=== PATIENT | male | born 1955 | race Caucasian/White ===

== ENCOUNTER 2017-06-01 09:35 | Day surgery (SDC) | payer OTHER ==
[~2017-06-01] VITALS: Ht 177.8 cm; Wt 90.8 kg
[2017-06-01] MEDS ORDERED: IOHEXOL 350 MG/ML 100 ML BTL (for Cath Lab) OTHER ONE (09:36)
[2017-06-01 10:25] VITALS: BP 157/90; PULSE 88; RESP 18; TEMP 97.8; O2SAT 100
[2017-06-01] MEDS ORDERED: BYST10TA2 PO (10:27)
[2017-06-01] MEDS ORDERED: ALBUAER3 INH (10:27)
[2017-06-01] MEDS ORDERED: HYDR25TA5 PO (10:27)
[2017-06-01] MEDS ORDERED: SYMB160A INH (10:27)
[2017-06-01] MEDS ORDERED: CILO50TA PO (10:27)
[2017-06-01] MEDS ORDERED: SODIUM CHLORIDE 0.9% FLUSH 10 ML FLUSH IV FLUSH PRN (10:45)
[2017-06-01] MEDS ORDERED: SODIUM CHLOR 0.9% 1000 ML INJ 1,000 ML IV SCH ×2 (10:45→12:33)
[2017-06-01 10:50] LABS: BASOPHIL # 0.1 TH/MM3 (0-0.2); BASOPHIL % 1.1 % (0.0-2.0); EOSINOPHIL # 0.5 TH/MM3 (0-0.4); EOSINOPHIL % 6.2 % (0.0-4.0); HEMATOCRIT 49.2 % (39.0-51.0); HEMOGLOBIN 17.7 GM/DL (13.0-17.0); MEAN CORPUSCULAR HEMOGLOBIN 35.6 PG (27.0-34.0); MEAN PLATELET VOLUME 6.1 FL (7.0-11.0); MONO % 13.7 % (0.0-8.0); PLATELET COUNT 300 TH/MM3 (150-450); RED BLOOD COUNT 4.96 MIL/MM3 (4.50-5.90); RED CELL DISTRIBUTION WIDTH 14.6 % (11.6-17.2); WHITE BLOOD COUNT 7.5 TH/MM3 (4.0-11.0)
[2017-06-01 10:56] LABS: INTERNATIONAL NORMALIZED RATIO 1.1 RATIO; PROTHROMBIN TIME - PATIENT 10.7 SEC (9.8-11.6)
[2017-06-01 11:00] LABS: BICARBONATE 30.1 MEQ/L (21.0-32.0); CALCIUM 9.1 MG/DL (8.5-10.1); CREATININE 1.43 MG/DL (0.60-1.30)
[2017-06-01] MEDS ORDERED: HEPARIN-NS/PF FLUSH BAG 2,000 ML IV FLUSH ONE (11:13)
[2017-06-01] MEDS ORDERED: MIDAZOLAM HCL 2 MG/2 ML VIAL ONE (11:15)
--- NOTE | 2017-06-01 12:34 | CATHPROC ---
[employer] HIS Report Study Information Study Number Admission Scheduled Start Study Start [id number] Jun 01 2017 9:35AM 06/01/2017 Jun 01 2017 10:39AM [place] Service Cath Endovascular Study Admit Source Facility Department Other [facility] - [facility] Director Physician and Clinical Staff Initial John Paul Huffman Web Site DesignerKarina Vernon RN Web Site DesignerPaul Thornton RN Other Jennifer Shepard BSN Recorder Peri Burks,[place] TECH2 Scrub Raj Neal,RT(R) Procedures Performed Procedure Location (Site) Vessel Name Wire insertion Fem Art (right) Femoral Art Equipment Time Receptionist Airline Lounge Description Size Mfg Part Number Used/Scraped [id number] 10:41 ANGIO-DYNAMICS OMNI FLUSH 65CM CATHETER FR 5 Used *[id number] 11:38 ANGIO-DYNAMICS OMNI FLUSH 65CM CATHETER FR 5 Used *[id number] 11:32 ARGON/MAXXIM DRAPE, BRACHIAL REINFORCED * Used *[id number] INTRODUCER SET, 10:41 [employer] FR 5 [id number] *[id number] Used MICROPUNCTURE, STIFFENED [id number] 10:41 i[employer]ica PACK, CCL CUSTOM * Used *[id number] 11:31 [employer] MEDICAL WIRE, 3MMJ .035 180CM 180CM Used *[id number] 11:56 NAMIC TUBING, HIGH PRESSURE 48" 48" Used *[id number] 10:41 NYCOMED OMNIPAQUE, 300 MG, 150ML 150ML [id number] Used 10:41 NYCOMED OMNIPAQUE, 300 MG, 150ML 150ML [id number] Used [id number] 10:41 TERUMO MEDICAL SHEATH, FR5 TERUMO (10CM) FR 5 Used *[id number] WIRE, ANGLE GLIDE STIFF .035 [id number] 11:52 TERUMO MEDICAL/ARLENE 260CM Used 260CM *[id number] History: Current Medications Medication Dosage/Unit Route Frequency Last Date/Time Taken HCTZ Albuterol Beta Emmett History: Allergies Allergy Reaction amoxicillin History: Risk Factors Hypertension Dyslipidemia Yes Yes Peripheral Artery Disease History: Other Current Smoker Method Packs a Day Yes Cigarettes 1 Labs Hgb (g/dl) Hct (%) RBC (MIL/MM3) WBC (l/cumm) Platelets (thousands) 11.60-17.00 35.00-51.00 4.00-5.90 4.00-11.00 150.00-450.00 17.7 49.2 4.9 7.5 300 Glucose (mg/dl) BUN (mg/dl) Creatinine (mg/dl) BUN:Creatinine (1:x) 74.00-106.00 7.00-18.00 0.50-1.30 10.00-20.00 126 7 1.4 5 Na (meq/l) K (meq/l) 136.00-145.00 3.50-5.10 129 3.4 INR (PTT:PT) 0.90-1.10 1.1 CPK-MB (ng/ML) 0.50-3.60 Not Drawn Medication Medication Total Dose (Bolus/Oral) Medication Total Dosage/Unit 1% XYLOCAINE 20 mL FENTANYL 50 mcg VERSED 1 mg Medications (Bolus/Oral) Medication Time Given Dosage/Unit Administered By Reason 1% XYLOCAINE 06/01/2017 11:51:20 AM 20 mL John Paul Poe 20 mL 1% XYLOCAINE given in lab by John Paul Poe in Right Groin via Subcutaneous. VERSED 06/01/2017 11:51:36 AM 1 mg Paul Zamora 1 mg VERSED given in lab by Paul Zamora RN via Peripheral IV. Ordered by John Paul Poe FENTANYL 06/01/2017 11:51:44 AM 50 mcg Paul Zamora 50 mcg FENTANYL given in lab by Paul Zamora RN via Peripheral IV. Ordered by John Paul Poe Medication (Drip) Medication Time Given Dosage/Unit Concentration/Unit Diluent (ml) Solution IV Solutions 06/01/2017 11:07:49 AM 0 mL (IV) 500 NaCl .9 Patient arrived on IV Solutions via Peripheral IV. Pump/Drip Flow = 20 ml/hr using NaCl .9. Initial Case Assessment Cardiovascular HR Rhythm NIBP Chest Pain 94 sr 162/74 0 Circulatory - Right Pulses Dorsalis Pedis Posterior Tibial Femoral 1 1 1 Scale (0,1,2,3,4,d) Circulatory - Left Pulses Dorsalis Pedis Posterior Tibial Femoral 1 1 1 Scale (0,1,2,3,4,d) Neurological State Oriented to time-place- Alert Moves all extremities person Respiration - General Respiration Rate SpO2 (%) (B/min) 10 100 Chronological Log Time Study Chronological Log 11:04:40 Patient arrived via Bed. 11:04:41 Patient Name, D.O.B, / Armband Verified By R.N. 11:04:42 Consent signed by the physician and the patient and verified by the Youth [facility] Director staff. 11:04:43 Pre-op and post- op instructions given; patient acknowledges understanding of instructions. 11:04:44 Verbal Stimulation=2 Physical Stimulation=2 Airway=2 Respiration=2 TOTAL=8. (0=absent, 1=li mited, 2=present) 11:07:04 Presedation assessment performed by Youth [facility] Director RN. 11:07:06 Patient has been NPO for More than 6Hrs. 11:07:07 Skin Breakdown-scratch on right forearm and rash on left foot noted. 11:07:47 Sandro Prominences Protected 11:07:48 A # 20 IV was noted in the Antecubital (left). Grade = patent 11:07:49 Patient arrived on IV Solutions via Peripheral IV. Pump/Drip Flow = 20 ml/hr using NaCl .9. 11:08:14 History and physical on the chart or being dictated. Vitals capture started with the following parameters, Patient=Adult, Interval=5 min, Initial Pr wydsmr=640 mmHg, 11:11:58 Deflation Rate=5 mmHg, Cuff placed on Right Ankle 11:12:26 Patient Name, D.O.B, / Armband Verified By R.N. 11:12:46 HR=98 bpm, OFKI=193/74 mmhg, SpO2=98.0 %, Resp=13 B/min Assessment: Initial Case, HR=94 BPM, Rhythm=sr, DAXM=966/74 mmhg, Chest Pain=0 Right Pulses: Álvaro Ped=1, Post Tib=1, Femoral=1 11:13:30 Left Pulses: Álvaro Ped=1, Post Tib=1, Femoral=1 Neurological: State=Alert, Ox3, DAILEY Respiration: Resp=10 B/min, NdK3=972 % 11:15:12 Reference ECG taken 11:17:41 HR=93 bpm, FKBP=658/92 mmhg, WgB4=888.0 %, Resp=9 B/min 11:22:36 HR=89 bpm, ORVZ=093/83 mmhg, SpO2=99.0 %, Resp=8 B/min 11:24:58 Bilateral groins and left foot prepped with 2% chlorhexidine, and draped after a 3 minute w aiting time. 11:27:37 HR=90 bpm, HUUI=594/94 mmhg, SpO2=98.0 %, Resp=14 B/min, Sheikh=2 11:32:42 HR=89 bpm, DCBR=725/85 mmhg, SpO2=99.0 %, Resp=13 B/min, Sheikh=2 11:35:46 Pressure channel 1 zeroed. 11:36:24 MD paged 11:37:39 HR=86 bpm, YGIV=290/73 mmhg, SpO2=99.0 %, Resp=5 B/min, Sheikh=2 11:41:01 MD arrived. 11:42:38 HR=93 bpm, ROLK=551/78 mmhg, SpO2=99.0 %, Resp=14 B/min, Sheikh=2 11:47:35 HR=86 bpm, PNJG=003/73 mmhg, AzE0=280.0 %, Resp=4 B/min, Sheikh=2 Time Out. Correct patient, correct procedure, correct physician, power injector loaded, or not loaded with contrast with 11:50:59 surgical team present. Time Out Concurred by MD and individual staff in procedure. 11:51:18 Case Start 11:51:20 20 mL 1% XYLOCAINE given in lab by John Paul Poe in Right Groin via Subcutaneous. 11:51:36 1 mg VERSED given in lab by Paul Zamora, SUMMER via Peripheral IV. Ordered by Andrew Poe 11:51:44 50 mcg FENTANYL given in lab by Paul Zamora, SUMMER via Peripheral IV. Ordered by John Paul Poe 11:52:38 HR=89 bpm, JLMB=059/77 mmhg, SpO2=99.0 %, Resp=13 B/min, Sheikh=2 11:54:06 Access site was Right Femoral Artery. A INTRODUCER SET, MICROPUNCTURE, STIFFENED FR 5 was advanced into the Fem Art (right) using the Modified 11:54:16 Seldinger technique. A SHEATH, FR5 TERUMO (10CM) FR 5 was exchanged in the Fem Art (right). This was necessary in or christopher to achieve 11:55:02 vascular hemostasis. 11:57:35 HR=89 bpm, GTVP=725/64 mmhg, SpO2=91.0 %, Resp=17 B/min, Sheikh=2 Recorded Pressure: FA, HR=89, Condition=Condition 1 11:58:10 (Femoral Artery) FA 138/74/98 12:00:43 Through a sheath, The Right lower extremity Run-off was performed using multiple images wi th 5 cc's per image 12:02:52 A WIRE, ANGLE GLIDE STIFF .035 260CM 260CM was inserted via Fem Art (right). A OMNI FLUSH 65CM CATHETER FR 5 was advanced over a wire. OMNIPAQUE, 300 MG, 150ML 150ML was u sed for 12:03:01 injections. 12:03:09 HR=89 bpm, PGOT=884/76 mmhg, SpO2=92.0 %, Resp=19 B/min, Sheikh=2 12:03:27 Wire removed 12:07:33 Through a catheter, The Left lower extremity Femoral Run-off was performed with multiple , 5 cc's contrast per image 12:07:37 HR=88 bpm, AKRN=597/82 mmhg, SpO2=94.0 %, Resp=17 B/min, Sheikh=2 12:12:41 HR=91 bpm, HUBR=499/81 mmhg, SpO2=96.0 %, Resp=19 B/min, Sheikh=2 12:12:59 Catheter was removed over wire 12:15:19 Case End 12:16:41 DOCU called. Spoke to Brie 12:17:44 HR=88 bpm, NUBU=724/72 mmhg, SpO2=97.0 %, Resp=11 B/min, Sheikh=2 12:19:18 Sheath removed; pressure applied to access site. 12:22:39 HR=91 bpm, ZSMP=841/79 mmhg, SpO2=97.0 %, Resp=11 B/min, Sheikh=2 12:27:40 HR=89 bpm, PKWQ=892/77 mmhg, SpO2=95.0 %, Resp=15 B/min, Sheikh=2 12:29:56 Sterile dressing applied to site 12:30:00 No case complications noted. 12:30:08 Bedside Report will be given. 12:32:39 HR=91 bpm, HVJR=148/73 mmhg, SpO2=94.0 %, Resp=17 B/min, Sheikh=2 12:33:34 Vitals capture stopped. 12:33:40 Patient moved to stretcher End Study - Contrast Media Used In Study Contrast Total Opened (mL) Total Used (mL) Total Wasted (mL) Omnipaque 90 90 0 End Study - Maximum Contrast Load Max Contrast Load (mL) 324.4 End Study - Radiation Exposure Fluoro Time (minutes) 4.3 End Study - Patient Disposition Complications Transferred To Interventional Outcome No [facility] Director Holding No attempt made
[2017-06-01] MEDS ORDERED: ASPI-516 CHEW (12:35)
[2017-06-01] MEDS ORDERED: SODIUM CHLOR 0.9% 250 ML INJ 250 ML IV PRN (12:45)
[2017-06-01] MEDS ORDERED: oxyCODONE/ACETAMINOPHEN 5 MG/325 MG TAB PO PRN ×2 (12:45)
[2017-06-01] MEDS ORDERED: MISC INFORMATION XX ONE (12:45)
[2017-06-01] MEDS ORDERED: ONDANSETRON HCL 4 MG/2 ML VIAL IV PUSH PRN (12:45)
[2017-06-01] MEDS ORDERED: ATROPINE SULFATE 1 MG/ML VIAL IV PUSH PRN (12:45)
--- NOTE | 2017-06-01 22:56 | EKG ---
Date Performed: 06/01/2017 Time Performed: 10:39:58 PTAGE: 62 years EKG: Sinus rhythm . Possible inferior infarct - age undetermined Low QRS voltages in limb leads Abnormal ECG NO PREVIOUS TRACING DOCTOR: Ulices Barbosa Interpretating Date/Time 06/01/2017 22:55:03
--- NOTE | 2017-06-07 08:45 | MA ---
cc: John Paul Poe DO 06/01/2017 DATE OF PROCEDURE: 06/01/2017. PROCEDURE: Bilateral lower extremity peripheral angiogram, moderate sedation 25 minutes. PREPROCEDURE DIAGNOSIS: Life limiting claudication, left greater than right. POSTPROCEDURE DIAGNOSIS: Moderate peripheral artery disease of the right, severe peripheral artery disease of the left with SFA occlusion. MEDICATIONS: Versed 1 mg, fentanyl 50 mcg. CONTRAST USED: 90 mL FLUOROSCOPY: 4.3 minutes. SEDATION: Moderate sedation 25 minutes. ESTIMATED BLOOD LOSS: 10 mL PROCEDURAL SUMMARY: Jennifer Schmidt is a pleasant 62-year-old male, whom I see in the office and presented with claudication with significant pain in the left extremity, greater than the right with walking. He felt that this limited his lifestyle and underwent a CTA which showed possible occlusion of the left SFA. He was recommended peripheral angiogram and underwent the procedure on 06/01/2017. Risks, benefits and alternatives were explained to him and he consented as such. He was brought to the lab and prepped in the usual sterile fashion. The right femoral artery was accessed using modified Seldinger technique and placement of a 5-Pakistani sheath. This was easily aspirated and flushed. Right lower extremity peripheral angiogram was done through the 5-Pakistani sheath. A Glidewire with an Omniflush was used to cross over to the left femoral artery for angiogram of the left lower extremity. This was removed over the wire. The femoral sheath was removed with pressure held for hemostasis. 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 FINDINGS: Right lower extremity, right PAINTINGS CONSERVATOR with 50% disease at the insertion site. Distally, the SFA has a 50-60% stenosis in the mid to distal portion. Popliteal artery is patent. Distally, the popliteal trifurcates with moderate disease in the tibioperoneal trunk. Distally, there appears to be 3-vessel runoff to the foot. Left lower extremity, left iliac is patent. The SFA is 100% occluded at the ostial portion. There is a 60% lesion in the profunda. Distally, the SFA reconstitutes before the popliteal artery. Popliteal artery trifurcates distally with 2-vessel runoff to the foot. IMPRESSION: 1. Life limiting claudication, left greater than right. 2. Moderate right lower extremity peripheral artery disease. 3. Severe left lower extremity peripheral artery disease with SFA occlusion. RECOMMENDATIONS: 1. Mr. Schmidt appears to have significant disease of his left lower extremity with occlusion at the ostium of the SFA and collaterals through his profunda. Due to the proximity to the bifurcation of the profunda and SFA I felt that this would be difficult to stent. 2. I will recommend that he see Dr. Dejesus for possible endovascular versus surgical intervention as anything that happened at the bifurcation could cause overall limb ischemia without an ability to do surgery immediately. Thank you for allowing me to see Jennifer Schmidt. If there are any questions please do not hesitate to call. John Paul Poe DO VGP/TL , 12:52 AM , 08:42 AM
== END 2017-06-01 17:44 | disposition home or self-care (01) ==
LOC: HDIC 09:35 → EDSEX 09:35 → HDOC 09:35
PROVIDERS: ATTEND Nuclear Medicine Nuclear Cardiology
DX: I73.9 Peripheral vascular disease, unspecified (principal); I77.1 Stricture of artery; R94.31 Abnormal electrocardiogram [ECG] [EKG]; I11.9 Hypertensive heart disease without heart failure; F17.210 Nicotine dependence, cigarettes, uncomplicated
CPT/HCPCS: 36246; 75716; 80048; 85025; 85610; 93005; 99152; 99153; C1769; C1893; J1644; J2250; J3010; Q9967

== ENCOUNTER 2017-06-22 07:51 | Day surgery (SDC) | payer OTHER ==
[~2017-06-22] VITALS: Ht 176.5 cm; Wt 89.6 kg
[~2017-06-22 07:51] MED LIST: ALBUAER3 INH; ASPI-516 CHEW; BYST10TA2 PO; CILO50TA PO; HYDR25TA5 PO; SYMB160A INH
[2017-06-22] MEDS ORDERED: IOHEXOL 350 MG/ML 100 ML BTL (for Cath Lab) OTHER ONE (07:52)
[2017-06-22 08:44] VITALS: BP 149/84; PULSE 88; RESP 18; TEMP 98.1; O2SAT 96
[2017-06-22] MEDS ORDERED: SODIUM CHLORIDE 0.9% FLUSH 10 ML FLUSH IV FLUSH PRN (08:45)
[2017-06-22] MEDS ORDERED: SODIUM BICARBONATE 100 MEQ in D5W 1000 ML IV SCH (08:45)
[2017-06-22 09:05] LABS: AUTOMATED NEUTROPHIL # 4.6 TH/MM3 (1.8-7.7); BASOPHIL # 0.1 TH/MM3 (0-0.2); BASOPHIL % 1.2 % (0.0-2.0); EOSINOPHIL # 0.5 TH/MM3 (0-0.4); EOSINOPHIL % 7.3 % (0.0-4.0); HEMATOCRIT 49.2 % (39.0-51.0); HEMOGLOBIN 17.5 GM/DL (13.0-17.0); LYMPH % 12.8 % (9.0-44.0); LYMPHOCYTE # 0.9 TH/MM3 (1.0-4.8); MEAN CELL VOLUME 98.9 FL (80.0-100.0); MEAN CORPUSCULAR HEMOGLOBIN 35.2 PG (27.0-34.0); MEAN CORPUSCULAR HGB CONC 35.5 % (32.0-36.0); MEAN PLATELET VOLUME 6.7 FL (7.0-11.0); NEUT % 64.7 % (16.0-70.0); PLATELET COUNT 352 TH/MM3 (150-450); RED BLOOD COUNT 4.97 MIL/MM3 (4.50-5.90)
[2017-06-22 09:22] LABS: BICARBONATE 26.8 MEQ/L (21.0-32.0); CREATININE 1.43 MG/DL (0.60-1.30)
--- NOTE | 2017-06-22 10:00 | PD.VS.PN ---
Pre-operative Note Pre-operative diagnosis: LLE claudication Planned procedure: L LE angiogram/endovascular intervention Interval History: Pt has no new changes in his health that would preclude OR Labs: Laboratory Results Test 06/22/17 08:28 Anion Gap 9 MEQ/L (5-15) Blood Urea Nitrogen 9 MG/DL (7-18) Creatinine 1.43 MG/DL (0.60-1.30) Random Glucose 109 MG/DL (74-106) Calcium Level 9.0 MG/DL (8.5-10.1) Sodium Level 129 MEQ/L (136-145) Potassium Level 3.3 MEQ/L (3.5-5.1) Chloride Level 93 MEQ/L (98-107) Carbon Dioxide Level 26.8 MEQ/L (21.0-32.0) Hematocrit 49.2 % (39.0-51.0) Hemoglobin 17.5 GM/DL (13.0-17.0) Mean Corpuscular Hemoglobin 35.2 PG (27.0-34.0) Mean Corpuscular Hemoglobin Concent 35.5 % (32.0-36.0) Mean Corpuscular Volume 98.9 FL (80.0-100.0) Mean Platelet Volume 6.7 FL (7.0-11.0) Platelet Count 352 TH/MM3 (150-450) Red Blood Count 4.97 MIL/MM3 (4.50-5.90) Red Cell Distribution Width 14.0 % (11.6-17.2) White Blood Count 7.0 TH/MM3 (4.0-11.0) Blood: none needed Imaging: will make in OR Orders: NPO clindamycin if stent being placed Post-operative destination: DOCU Operative site marked: Yes Consent: Informed consent has been obtained from Jennifer Schmdit. I have explained the procedure in detail and discussed the risks, benefits, and potential complications. All questions have been answered. Patient contact information: in waiting room Bird Dejesus MD Jun 22, 2017 10:00
[2017-06-22] MEDS ORDERED: HEPARIN-NS/PF FLUSH BAG 1,000 ML IV FLUSH ONE (10:10)
[2017-06-22] MEDS ORDERED: MIDAZOLAM HCL 5 MG/5 ML VIAL ONE (10:11)
[2017-06-22] MEDS ORDERED: HEPARIN SODIUM - IV 10,000 UNITS/10 ML VIAL ONE (10:21)
[2017-06-22] MEDS ORDERED: LEVOFLOXACIN 500 MG PREMIX INJ 100 ML IV ONE (10:42)
--- NOTE | 2017-06-22 10:59 | CATHPROC ---
Patient Name: HAJA URENA Study #: [id number] Initial MD: Bird Dejesus Date of : 1955 Study Date: 06/22/2017 Cardiac Catheterization Report 06/22/2017 10:58:54 AM Financial #: [id number] 1 of 10 Patient Name: HAJA URENA Study #: [id number] Initial MD: Bird Dejesus Date of : 1955 Study Date: 06/22/2017 Entire Case Report Patient Information Patient Name HAJA URENA Date of 1955 Age 62 years Financial # [id number] Gender M AlternateID Lab Number 5 Room Number DC04 Height (in) Height (cm) BSA Weight (lbs) 197.1 Weight (kg) 89.6 Patient Address/Phone Number Home Address [facility] Home Phone Number [phone] [facility] [phone] Study Information Study Number Admission Scheduled Start Study Start [id number] Jun 22 2017 7:51AM 06/22/2017 Jun 22 2017 10:02AM Morris Service Cath Endovascular Study Admit Source Facility Department Other [facility] - Service Loss Control Consultant Physician and Clinical Staff Initial Bird Gutierrez District Court Judge Paul Zamora,SUMMER Other Carlee Hennessy,RT(R) TECH2 Recorder Peri Burks RCIS TECH2 Scrub Raj Neal,RT(R) Procedures Performed Procedure Location (Site) Vessel Name Angiogram (manual) Fem Sup. (left) Femoral Art Periph stent Fem Sup. (left) Femoral Art APPLICATIONS SALES CONSULTANT Fem Sup. (left) Femoral Art Wire insertion Fem Art (right) Femoral Art 06/22/2017 10:58:54 AM Financial #: [id number] 2 of 10 Patient Name: HAJA URENA Study #: [id number] Initial MD: Bird Dejesus Date of : 1955 Study Date: 06/22/2017 Equipment Time Greenhouse Specialist Description Size Mfg Part Number Used/Scraped [id number] 10:05 ANGIO-DYNAMICS OMNI FLUSH 65CM CATHETER FR 4 Used *[id number] INTRODUCER SET, 10:05 [employer]. FR 5 [id number] *[id number] Used MICROPUNCTURE STIFF CXI-4.0-35-135- 10:25 COOK/ARLENE CATHETER, FR4 CXI SUPPORT FR 4 Used P-NS-0 *[id number] SHEATH, FR6 JANE 1 FLEXOR [id number] 10:24 COOK/ARLENE FR 6 Used 55CM *[id number] WIRE, GUIDE APPROACH PLANNING MANAGEMENT IT SPECIALIST [id number] 10:25 COOK/ARLENE 300CM Used MICROWIRE *[id number] 10:54 DAIG/ST. SHANITA MEDICAL ANGIOSEAL, FR6 VIP FR 6 Used *[id number] ENDOVASCULAR TII95-89-487- 10:49 STENT, EVERFLEX 6 X 150 120CM 6 X 150 Used [employer] 120 ENDOVASCULAR CXF89-24-277- 10:43 STENT, EVERFLEX 6 X 200 120CM 6 X 200 Used [employer] 120 BALLOON, ADMIRAL EXTREME 5 X [id number] 10:31 [employer]ATEC [employer] 130CM Used 150 130CM *[id number] 10:05 ActualSun PACK, CCL CUSTOM * Used *[id number] 10:05 CohBar MEDICAL PRESSURE TUBING 48" 48" [id number] Used 6609-33 10:24 CohBar MEDICAL WIRE, WANG 260CM .035 260CM Used *[id number] 10:05 NAMIC TUBING, HIGH PRESSURE 20" 20" Used *[id number] TUBING, PRESSURE INJECTION [id number] 10:05 NAMIC PACER 72" Used 72" *[id number] 10:05 NYCOMED OMNIPAQUE, 300 MG, 150ML 150ML [id number] Used 10:05 NYCOMED OMNIPAQUE, 300 MG, 50ML 50ML [id number] Used [id number] 10:05 BRANCH MEDICAL BLANKET,WARM AIR CCL * Used *1628491 RCX138 10:05 TERUMO MEDICAL SHEATH, FR4 TERUMO (10CM) FR 4 Used *[id number] WIRE, ANGLED GLIDE .035 [id number] 10:05 TERUMO MEDICAL/ARLENE 260CM Used 260CM *[id number] Equipment Model, Serial, Lot Number and Expiration Data Description Model Number Serial Number Lot Number Expiration Date CATHETER, FR4 CXI SUPPORT [id number] 02-04-2020 SHEATH, FR6 JANE 1 FLEXOR [id number] 12-28-2019 55CM STENT, EVERFLEX 6 X 150 120CM [id number] 01-18-2020 STENT, EVERFLEX 6 X 200 120CM [id number] 04-28-2020 WIRE, GUIDE APPROACH PLANNING MANAGEMENT IT SPECIALIST [id number] 09-05-2021 MICROWIRE 06/22/2017 10:58:54 AM Financial #: [id number] 3 of 10 Patient Name: HAJA URENA Study #: [id number] Initial MD: Bird Dejesus Date of : 1955 Study Date: 06/22/2017 Insurance Information Insurance Payor Private Health Insurance Third Constitution Party Third Constitution Party Number CIGNA POS CIGPOS History: Allergies Allergy Reaction amoxicillin History: Risk Factors Hypertension Dyslipidemia Yes Yes Peripheral Artery Disease History: Symptoms/Diagnosis Selection Items SOB History: Other Current Smoker Method Packs a Day Yes Cigarettes 1 Labs Hgb (g/dl) Hct (%) RBC (MIL/MM3) WBC (l/cumm) Platelets (thousands) 11.60-17.00 35.00-51.00 4.00-5.90 4.00-11.00 150.00-450.00 17.5 49.2 4.9 7 352 Glucose (mg/dl) BUN (mg/dl) Creatinine (mg/dl) BUN:Creatinine (1:x) 74.00-106.00 7.00-18.00 0.50-1.30 10.00-20.00 109 9 1.4 6.4 Na (meq/l) K (meq/l) Cl (meq/l) CO2 (mmol/L) Ca (mg/dl) 136.00-145.00 3.50-5.10 98.00-107.00 21.00-32.00 8.50-10.10 129 3.3 93 26.8 9 CPK-MB (ng/ML) 0.50-3.60 Not Drawn Medication 06/22/2017 10:58:54 AM Financial #: [id number] of 10 Patient Name: HAJA URENA Study #: [id number] Initial MD: Bird Dejesus Date of : 1955 Study Date: 2017 Medication Total Dose (Bolus/Oral) Medication Total Dosage/Unit 1% XYLOCAINE 20 mL FENTANYL 100 mcg HEPARIN 5000 units VERSED 3 mg Medications (Bolus/Oral) Medication Time Given Dosage/Unit Administered By Reason VERSED 06/22/2017 10:16:40 AM 2 mg Paul Zamora 2 mg VERSED given in lab by Paul Zamora RN in Left Antecubital via Peripheral IV. Ordered by Bird Abdul. FENTANYL 06/22/2017 10:16:53 AM 50 mcg BenoMelaniey 50 mcg FENTANYL given in lab by Paul Zamora RN in Left Antecubital via Peripheral IV. Ordered by Bird Dejesus. 1% XYLOCAINE 06/22/2017 10:17:38 AM 20 mL Patient arrived on 20 mL 1% XYLOCAINE via Subcutaneous. VERSED 06/22/2017 10:18:16 AM 1 mg Paul Zamora 1 mg VERSED given in lab by Paul Zamora RN in Left Antecubital via Peripheral IV. Ordered by Bird Abdul. FENTANYL 06/22/2017 10:18:59 AM 25 mcg BenoPaul 25 mcg FENTANYL given in lab by Paul Zamora RN in Left Antecubital via Peripheral IV. Ordered by Bird Dejesus. HEPARIN 06/22/2017 10:23:36 AM 5000 units Paul Zamora 5000 units HEPARIN given in lab by Paul Zamora RN in Left Antecubital via Peripheral IV. Ordered by Bird Dejesus. FENTANYL 06/22/2017 10:54:27 AM 25 mcg BenoPaul 25 mcg FENTANYL given in lab by Paul Zamora RN in Left Antecubital via Peripheral IV. Ordered by Bird Dejesus. Medication (Drip) Medication Time Given Dosage/Unit Concentration/Unit Diluent (ml) Solutio n IV Solutions 06/22/2017 10:14:38 AM 0 mL (IV) 500 NaCl .9 Patient arrived on IV Solutions in Left Antecubital via Peripheral IV. Pump/Drip Flow = 20 ml/hr usin g NaCl .9. LEVAQUIN 06/22/2017 10:46:17 AM 500 mg 500 mg LEVAQUIN given in lab by Paul Zamora RN in Left Antecubital via Peripheral IV. Ordered by Bird Dejesus. SODIUM BICARBONATE 06/22/2017 10:18:41 AM 12.5 meq/hr 100 meq 1000 NaCl .9 DRIP Patient arrived on 12.5 meq/hr SODIUM BICARBONATE DRIP in Left Antecubital via Peripheral IV. Pump/Dr ip Flow = 125 ml/hr using NaCl .9 with a concentration of 100 meq in 1000 ml. 06/22/2017 10:58:54 AM Financial #: [id number] 5 of 10 Patient Name: HAJA URENA Study #: [id number] Initial MD: Bird Dejesus Date of : 1955 Study Date: 06/22/2017 Initial Case Assessment Cardiovascular HR Rhythm NIBP Chest Pain 80 sr 141/85 0 Circulatory - Right Pulses Dorsalis Pedis Posterior Tibial Femoral d d 2 Scale (0,1,2,3,4,d) Circulatory - Left Pulses Dorsalis Pedis Posterior Tibial Femoral d d 2 Scale (0,1,2,3,4,d) Neurological State Oriented to time-place- Alert Moves all extremities person Respiration - General Respiration Rate SpO2 (%) (B/min) 11 100 06/22/2017 10:58:54 AM Financial #: [id number] 6 of 10 Patient Name: HAJA URENA Study #: [id number] Initial MD: Bird Dejesus Date of : 1955 Study Date: 06/22/2017 Vitals Summary Pain Time HR NIBP SpO2 Resp Temp EtCO2 Apnea Efrain Sheikh Comment Level 10:11:46 80 141/85 99.0 17 0 2 10:13:42 81 142/86 100.0 15 10:15:43 81 157/84 99.0 22 10:17:50 85 157/76 99.0 10 10:19:45 86 122/75 94.0 16 10:21:42 81 111/66 93.0 6 10:23:40 80 106/63 94.0 10 10:25:41 80 103/63 96.0 10 10:27:38 80 111/70 94.0 19 10:29:41 79 118/73 94.0 18 10:31:42 79 123/68 95.0 18 10:33:43 79 124/77 96.0 19 10:35:43 77 120/72 95.0 17 10:37:42 77 132/78 96.0 19 10:39:43 78 140/81 96.0 19 10:41:48 79 126/76 96.0 19 10:43:45 78 134/77 96.0 19 10:45:48 77 134/78 95.0 21 10:47:46 76 127/77 96.0 19 10:49:45 76 134/81 96.0 17 10:51:46 77 127/78 96.0 20 10:53:45 77 130/82 97.0 16 10:55:46 78 142/78 98.0 16 10:57:49 77 135/80 97.0 15 Chronological Log Time Study Chronological Log 10:00:01 MD arrived. 10:01:43 Patient arrived via Bed. 10:01:50 Patient Name, D.O.B, / Armband Verified By R.N. 10:03:55 Consent signed by the physician and the patient and verified by the Service Loss Control Consultant staff. 10:03:55 Pre-op and post- op instructions given; patient acknowledges understanding of instructions. 10:03:57 Verbal Stimulation=2 Physical Stimulation=2 Airway=2 Respiration=2 TOTAL=8. (0=absent, 1=li mited, 2=present) 10:11:46 HR=80 bpm, GMCA=751/85 mmhg, SpO2=99.0 %, Resp=17 B/min, Pain=0, Sheikh=2 06/22/2017 10:58:54 AM Financial #: [id number] Patient Name: HAJA URENA Study #: [id number] Initial MD: Bird Dejesus Date of : 1955 Study Date: 06/22/2017 Assessment: Initial Case, HR=80 BPM, Rhythm=sr, RIOO=552/85 mmhg, Chest Pain=0 Right Pulses: Álvaro Ped=d, Post Tib=d, Femoral=2 10:13:26 Left Pulses: Álvaro Ped=d, Post Tib=d, Femoral=2 Neurological: State=Alert, Ox3, DAILEY Respiration: Resp=11 B/min, JyB6=264 % 10:13:42 HR=81 bpm, NMHA=384/86 mmhg, HhB6=087.0 %, Resp=15 B/min 10:14:22 A # 20 IV was noted in the Antecubital (left). Grade = patent 10:14:38 Patient arrived on IV Solutions in Left Antecubital via Peripheral IV. Pump/Drip Flow = 20 ml/hr using NaCl .9. 10:15:43 HR=81 bpm, FXLQ=931/84 mmhg, SpO2=99.0 %, Resp=22 B/min Time Out. Correct patient, correct procedure, correct physician, power injector loaded, or not loaded with contrast with 10:16:31 surgical team present. Time Out Concurred by MD and individual staff in procedure. 10:16:40 2 mg VERSED given in lab by Paul Zamora RN in Left Antecubital via Peripheral IV. Order ed by Bird Dejesus. 10:16:53 50 mcg FENTANYL given in lab by Paul Zamora RN in Left Antecubital via Peripheral IV. O rdered by Bird Dejesus. 10:17:17 Bilateral groins prepped with 2% chlorhexidine, and draped after a 3 minute waiting time. 10:17:37 Case Start 10:17:38 Patient arrived on 20 mL 1% XYLOCAINE via Subcutaneous. 10:17:50 HR=85 bpm, UVVR=072/76 mmhg, SpO2=99.0 %, Resp=10 B/min 10:18:16 1 mg VERSED given in lab by Paul Zamora RN in Left Antecubital via Peripheral IV. Order ed by Bird Dejesus. Patient arrived on 12.5 meq/hr SODIUM BICARBONATE DRIP in Left Antecubital via Peripheral IV. P ump/Drip Flow = 10:18:41 125 ml/hr using NaCl .9 with a concentration of 100 meq in 1000 ml. 10:18:59 25 mcg FENTANYL given in lab by Paul Zamora RN in Left Antecubital via Peripheral IV. O rdered by Bird Dejesus. 10:19:45 HR=86 bpm, IXVO=592/75 mmhg, SpO2=94.0 %, Resp=16 B/min 10:19:58 Access site was Right Femoral Artery. A INTRODUCER SET, MICROPUNCTURE STIFF FR 5 was advanced into the Fem Art (right) using the Perc utaneous 10:20:03 technique. A SHEATH, FR4 TERUMO (10CM) FR 4 was exchanged in the Fem Art (right). This was necessary in or christopher to 10:20:12 accomodate a larger catheter. 10:20:43 A WIRE, ANGLED GLIDE .035 260CM 260CM was inserted via Fem Art (right). A OMNI FLUSH 65CM CATHETER FR 4 was advanced over a wire and advanced up and over to the left i liac. 10:20:54 OMNIPAQUE, 300 MG, 150ML 150ML was used for injections. 10:21:20 Reference ECG taken 10:21:33 Wire removed 10:21:42 HR=81 bpm, EZKF=394/66 mmhg, SpO2=93.0 %, Resp=6 B/min 10:22:25 Fem Sup. (left) angiogram, manually injected. 10:23:30 The previous wire was exchanged for a WIRE, FELIPE 260CM .035 260CM. 10:23:36 5000 units HEPARIN given in lab by Paul Zamora, SUMMER in Left Antecubital via Peripheral IV . Ordered by Bird Dejesus. 10:23:40 HR=80 bpm, ASGG=758/63 mmhg, SpO2=94.0 %, Resp=10 B/min 10:24:14 Catheter was removed w/o difficulty A SHEATH, FR6 JANE 1 FLEXOR 55CM FR 6 was exchanged in the Fem Art (right). This was necessary in order to 10:24:17 accomodate a larger catheter. 10:25:41 HR=80 bpm, PKWE=155/63 mmhg, SpO2=96.0 %, Resp=10 B/min A CATHETER, FR4 CXI SUPPORT FR 4 was advanced over a wire up and over to the left. OMNIPAQUE, 3 00 MG, 150ML 10:26:00 150ML was used for injections. 10:26:45 The previous wire was exchanged for a WIRE, GUIDE APPROACH PLANNING MANAGEMENT IT SPECIALIST MICROWIRE 300CM. 06/22/2017 10:58:54 AM Financial #: [id number] Patient Name: HAJA URENA Study #: [id number] Initial MD: Bird Dejesus Date of : 1955 Study Date: 06/22/2017 10:27:38 HR=80 bpm, QYNY=604/70 mmhg, SpO2=94.0 %, Resp=19 B/min 10:29:00 The previous wire was exchanged for a WIRE, WANG 260CM .035 260CM. 10:29:10 Catheter was removed w/o difficulty 10:29:41 HR=79 bpm, AORZ=823/73 mmhg, SpO2=94.0 %, Resp=18 B/min A BALLOON, ADMIRAL EXTREME 5 X 150 130CM 130CM was inserted over WIRE, WANG 260CM .035 260CM v ia the 10:30:01 Fem Sup. (left). 10:30:18 In the Fem Sup. (left) a BALLOON, ADMIRAL EXTREME 5 X 150 130CM 130CM was inflated to 6 coral s for 120 seconds. 10:31:42 HR=79 bpm, XACC=452/68 mmhg, SpO2=95.0 %, Resp=18 B/min 10:32:46 In the Fem Sup. (left) a BALLOON, ADMIRAL EXTREME 5 X 150 130CM 130CM was inflated to 8 coral s for 120 seconds. 10:33:43 HR=79 bpm, MFZL=869/77 mmhg, SpO2=96.0 %, Resp=19 B/min 10:35:43 HR=77 bpm, ETCQ=594/72 mmhg, SpO2=95.0 %, Resp=17 B/min 10:35:56 In the Fem Sup. (left) a BALLOON, ADMIRAL EXTREME 5 X 150 130CM 130CM was inflated to 8 coral s for 120 seconds. 10:37:42 HR=77 bpm, YUYA=504/78 mmhg, SpO2=96.0 %, Resp=19 B/min 10:38:44 Balloon Removed. 10:39:43 HR=78 bpm, KFMZ=952/81 mmhg, SpO2=96.0 %, Resp=19 B/min 10:41:04 Peripheral Vascular Intervention Performed. 10:41:11 A STENT, EVERFLEX 6 X 200 120CM 6 X 200 was advanced over a WIRE, WANG 260CM .035 260CM. 10:41:48 HR=79 bpm, XYEK=544/76 mmhg, SpO2=96.0 %, Resp=19 B/min 10:43:01 A STENT, EVERFLEX 6 X 200 120CM 6 X 200 was self deployed in the Fem Sup. (left). 10:43:45 HR=78 bpm, DIDW=610/77 mmhg, SpO2=96.0 %, Resp=19 B/min A BALLOON, ADMIRAL EXTREME 5 X 150 130CM 130CM was inserted over WIRE, WANG 260CM .035 260CM v ia the 10:43:59 Fem Sup. (left). 10:44:14 In the Fem Sup. (left) a BALLOON, ADMIRAL EXTREME 5 X 150 130CM 130CM was inflated to 10 at ms for 8 seconds. 10:44:32 In the Fem Sup. (left) a BALLOON, ADMIRAL EXTREME 5 X 150 130CM 130CM was inflated to 10 at ms for 8 seconds. 10:45:26 Balloon Removed. 10:45:48 HR=77 bpm, NHWS=769/78 mmhg, SpO2=95.0 %, Resp=21 B/min 10:46:17 500 mg LEVAQUIN given in lab by Paul Zamora RN in Left Antecubital via Peripheral IV. O rdered by Bird Dejesus. 10:47:46 HR=76 bpm, OVHF=685/77 mmhg, SpO2=96.0 %, Resp=19 B/min A STENT, EVERFLEX 6 X 150 120CM 6 X 150 was advanced through a catheter over a WIRE, WANG 260C M .035 10:47:57 260CM. 10:48:09 A STENT, EVERFLEX 6 X 150 120CM 6 X 150 was self deployed in the Fem Sup. (left). 10:49:23 Delivery device removed A BALLOON, ADMIRAL EXTREME 5 X 150 130CM 130CM was inserted over WIRE, WANG 260CM .035 260CM v ia the 10:49:32 Fem Sup. (left). 10:49:45 HR=76 bpm, GABH=678/81 mmhg, SpO2=96.0 %, Resp=17 B/min 10:49:58 In the Fem Sup. (left) a BALLOON, ADMIRAL EXTREME 5 X 150 130CM 130CM was inflated to 10 at ms for 10 seconds. 10:50:15 In the Fem Sup. (left) a BALLOON, ADMIRAL EXTREME 5 X 150 130CM 130CM was inflated to 10 at ms for 10 seconds. 10:51:06 Balloon Removed. 10:51:46 HR=77 bpm, GMFB=179/78 mmhg, SpO2=96.0 %, Resp=20 B/min 10:53:45 HR=77 bpm, HMSK=595/82 mmhg, SpO2=97.0 %, Resp=16 B/min 06/22/2017 10:58:54 AM Financial #: [id number] Patient Name: HAJA URENA Study #: [id number] Initial MD: Bird Dejesus Date of : 1955 Study Date: 06/22/2017 10:53:50 ANGIOSEAL, FR6 VIP FR 6 placement in the Fem Art (right) 10:54:13 Case End 10:54:27 25 mcg FENTANYL given in lab by Paul Zamora RN in Left Antecubital via Peripheral IV. Ordered by Bird Dejesus. 10:55:46 HR=78 bpm, AZPP=620/78 mmhg, SpO2=98.0 %, Resp=16 B/min 10:57:15 Sterile dressing applied to site 10:57:16 No case complications noted. 10:57:17 Cine recording checked. 10:57:49 HR=77 bpm, ZBUC=941/80 mmhg, SpO2=97.0 %, Resp=15 B/min End Study - Contrast Media Used In Study Contrast Total Opened (mL) Total Used (mL) Total Wasted (mL) Omnipaque 45 45 0 End Study - Maximum Contrast Load Max Contrast Load (mL) 320.0 End Study - Radiation Exposure Fluoro Time (minutes) 8.9 End Study - Sheaths Sheaths Pulled By Sheath Hold Time (min) Bird Dejesus 5 End Study - Patient Disposition Complications Transferred To Interventional Outcome No Telemetry Bed successful 06/22/2017 10:58:54 AM Financial #: [id number]
--- NOTE | 2017-06-22 10:59 | HHI.PR ---
cc: Bird Dejesus MD Immediate Post Op Note Procedure Date: Jun 22, 2017 Pre Op Diagnosis: L LE claudication, PAD Post Op Diagnosis: L LE claudication, PAD Surgeon: Bird Dejesus Sodium Methylate Operator(s): none Procedure: L LE angiogram L SFA SHIP LABORER/stent (6x200, 6x150 Protege) R LABOR UTILIZATION SUPERINTENDENT Angioseal Findings: Total SFA occlusion, recanalized and SHIP LABORER/stent with excellent results Complications: none Specimen(s) removed: none Estimated blood loss: 10mL Anesthesia: MAC Drains: None Fluids: 600mL IVF Patient to: Other (DOCU) Patient Condition: Good Implant/Devices: SEE IMPLANT LOG (if applicable) Date/Time of Procedure: SEE SURGICAL CARE RECORD Bird Dejesus MD Jun 22, 2017 10:59
[2017-06-22] MEDS ORDERED: CLOPIDOGREL 75 MG TAB PO ONE (12:45)
--- NOTE | 2017-06-22 13:46 | MP ---
cc: Bird Dejesus MD DATE OF OPERATION: 06/22/2017 PREOPERATIVE DIAGNOSIS: Left lower extremity claudication, peripheral vascular disease. POSTOPERATIVE DIAGNOSIS: Left lower extremity claudication, peripheral vascular disease. PROCEDURE PERFORMED: 1. Left lower extremity angiograms. 2. Left SFA angioplasty and stent. 3. Right common femoral artery Angio-Seal. ATTENDING SURGEON: Bird Djeesus MD ANESTHESIA: Local with sedation. INDICATION: Mr. Schmidt is a 62-year-old gentleman with left lower extremity claudication. He has a prior angiogram by a edge sawyer who then sent him to us for endovascular treatment. DESCRIPTION OF PROCEDURE: Informed consent was obtained from the patient. He was taken to the operating room and placed supine on the operating table. Appropriate timeout was taken to ensure the patient's identity, operative site and planned procedure. The administration of levofloxacin was initiated prior to stent implantation and will be discontinued after single preoperative dose. Levofloxacin was chosen because of the patient's PENICILLIN ALLERGY. Everyone in the room agreed with timeout and we proceeded. His bilateral groins were prepped and draped. The right groin was anesthetized with 1 percent lidocaine. A 21-gauge micropuncture needle was used to access the right common femoral artery. This was exchanged using Seldinger technique through micropuncture sheath through which a 0.035 Glidewire was introduced. The micropuncture sheath was exchanged for a 4-Georgian sheath and a VCF catheter was placed over the wire and through the sheath and the VCF catheter and Glidewire were navigated down to the left common femoral artery. The left lower extremity arteriogram was obtained. The patient was systemically heparinized with 5000 units of IV heparin. A 0.035 Kebede wire was introduced through the VCF catheter and the VCF catheter and 4-Georgian sheath was removed. The 6-Georgian 55 cm antral sheath was introduced and a CXI catheter was placed over the wire and through the sheath and the Kebede was exchanged for a SCALEMAN wire. Using a SCALEMAN and CXI we were able to navigate through the SFA occlusion into the popliteal artery and angiogram confirmed this. The Kebede was reintroduced and the CXI catheter was removed as well as a SCALEMAN wire. The entire area was angioplastied with a 5 mm balloon. The completion angiogram showed residual stenosis. This was treated with a 6 x 206 x 150 self-expanding stent and it was postdilated to 5 mm. Completion angiogram showed excellent result and reflow extravasation. The wire, catheter and sheath were removed and the groin was closed with Angio-Seal. There were no complications. I was present and scrubbed for the entire procedure. Bird Dejesus MD RJCory/TL , 01:27 PM , 01:45 PM
[2017-06-23] MEDS ORDERED: CLOPIDOGREL 75 MG TAB PO SCH (09:00)
== END 2017-06-22 14:17 | disposition home or self-care (01) ==
LOC: HDOC 07:51 → HDIC 07:51 → HDOC 14:17
PROVIDERS: ATTEND Surgery
DX: I70.219 Atherosclerosis of native arteries of extremities with intermittent claudication, unspecified extremity (principal); Z01.818 Encounter for other preprocedural examination; Z88.0 Allergy status to penicillin
CPT/HCPCS: 36247; 37226; 75710; 80048; 85025; C1725; C1751; C1769; C1876; C1893; G0269; J1644; J1956; J2250; J3010; J7070; Q9967